=== PATIENT | female | born 1980 | race Caucasian/White ===

== ENCOUNTER → 2018-05-28 | Outpatient (CLI) | payer BC, MEDICAID | LOC: M RAD 14:51 | DX: S93.492D Sprain of other ligament of left ankle, subsequent encounter (principal); M72.2 Plantar fascial fibromatosis; X58.XXXD Exposure to other specified factors, subsequent encounter; Y92.9 Unspecified place or not applicable; M67.472 Ganglion, left ankle and foot | CPT/HCPCS: 73721 ==

== ENCOUNTER → 2020-10-18 | Outpatient (CLI) | payer SELFPAY | LOC: M LABSMTC 14:27 | PROVIDERS: ATTEND Pediatrics | DX: Z20.828 Contact with and (suspected) exposure to other viral communicable diseases (principal) ==